=== PATIENT | male | born 1985 | race American Indian/Alaskan Native ===

== ENCOUNTER 2021-07-10 22:49 | Emergency (ER) | payer SELFPAY ==
--- NOTE | 2021-07-11 01:05 | Emergency Department Report ---
ED Upper Extremity Inj HPI - General Chief Complaint: Wound/Laceration Stated Complaint: RT HAND INJURY Source: patient Mode of arrival: Ambulatory Limitations: No Limitations - History of Present Illness Initial Comments: Patient is a 35-year-old -Martiniquais male with no past medical history presents to the ED with complaint of acute onset persistent painful distal right thumb laceration on the palmar side after a metallic can that he was opening cut his right arm accidentally 2 hours ago. Patient states that the bleeding is not well controlled at this time. Patient states that he is up-to-date with all his vaccinations including tetanus. Patient denies numbness and tingling or weakness of right hand, nausea and vomiting, dizziness, syncope, fall, shortness of breath or lightheadedness. MD Complaint: Injury to:: right, finger (Right thumb laceration) -: Sudden, hour(s) (2) Other Extremity Injury: Fingers: Right (Right thumb laceration on the palmar side) Other Injuries: none Handedness: right Place: home Severity scale (0 -10): 7 Improves With: none Worsens With: movement of extremity Context: laceration (Right thumb laceration), injury (Right thumb laceration) Associated Symptoms: denies other symptoms. denies: weakness, numbness, suspects foreign body, nausea/vomiting, heard/felt popping sensat - Related Data Previous Rx's Medication Instructions Recorded Last Taken Type Ibuprofen [Motrin] 800 mg PO Q8HR PRN #30 tablet 07/11/21 Unknown Rx cephALEXin [Keflex] 500 mg PO Q8HR #30 cap 07/11/21 Unknown Rx Allergies Allergy/AdvReac Type Severity Reaction Status Date / Time No Known Allergies Allergy Unverified 07/11/21 00:38 ED Review of Systems ROS: Stated complaint: RT HAND INJURY Other details as noted in HPI Constitutional: denies: chills, fever Eyes: denies: eye pain, eye discharge, vision change ENT: denies: ear pain, throat pain Respiratory: denies: cough, shortness of breath, wheezing Cardiovascular: denies: chest pain, palpitations Endocrine: no symptoms reported Gastrointestinal: denies: abdominal pain, nausea, vomiting, diarrhea Genitourinary: denies: urgency, dysuria Musculoskeletal: arthralgia (Right thumb pain with bleeding laceration). denies: back pain, joint swelling Skin: other (Bleeding distal right thumb laceration with pain). denies: rash, lesions Neurological: denies: headache, weakness, paresthesias Psychiatric: denies: anxiety, depression Hematological/Lymphatic: denies: easy bleeding, easy bruising ED Past Medical Hx - Medications Home Medications: Home Medications Medication Instructions Recorded Confirmed Last Taken Type Ibuprofen [Motrin] 800 mg PO Q8HR PRN #30 tablet 07/11/21 Unknown Rx cephALEXin [Keflex] 500 mg PO Q8HR #30 cap 07/11/21 Unknown Rx ED Physical Exam - General Limitations: No Limitations General appearance: alert, in no apparent distress - Head Head exam: Present: atraumatic, normocephalic, normal inspection - Eye Eye exam: Present: normal appearance, PERRL, EOMI Pupils: Present: normal accommodation - ENT ENT exam: Present: normal exam, normal orophraynx, mucous membranes moist, TM's normal bilaterally, normal external ear exam - Neck Neck exam: Present: normal inspection, full ROM. Absent: tenderness - Respiratory Respiratory exam: Present: normal lung sounds bilaterally. Absent: respiratory distress, wheezes, rales, rhonchi, chest wall tenderness, accessory muscle use, decreased breath sounds, prolonged expiratory - Cardiovascular Cardiovascular Exam: Present: regular rate, normal rhythm, normal heart sounds. Absent: systolic murmur, diastolic murmur, rubs, gallop - GI/Abdominal GI/Abdominal exam: Present: soft, normal bowel sounds. Absent: distended, tenderness, guarding, rigid, hyperactive bowel sounds, hypoactive bowel sounds, organomegaly - Extremities Exam Extremities exam: Present: normal inspection, full ROM, tenderness (Bleeding tender distal right thumb 5 cm laceration on palmar side), normal capillary refill. Absent: calf tenderness - Back Exam Back exam: Present: normal inspection, full ROM. Absent: tenderness, CVA tenderness (R), CVA tenderness (L), muscle spasm, paraspinal tenderness, vertebral tenderness - Neurological Exam Neurological exam: Present: alert, oriented X3, CN II-XII intact, normal gait, reflexes normal - Psychiatric Psychiatric exam: Present: normal affect, normal mood - Skin Skin exam: Present: warm, dry, intact, normal color, other (Bleeding 5 cm laceration on distal right thumb on palmar side with localized tenderness). Absent: rash ED Course Vital Signs 07/10/21 22:59 Temperature 98.3 F Pulse Rate 75 Respiratory 18 Rate Blood Pressure 153/108 O2 Sat by Pulse 97 Oximetry - Laceration /Wound Repair Right Distal Plantar Finger Wound Location: upper extremity (Distal right thumb laceration on palmar side) Wound Length (cm): 5 Wound's Depth, Shape: superficial, irregular Wound Explored: contaminated Irrigated w/ Saline (ccs): 300 Betadine Prep?: Yes Anesthesia: 1% Lidocaine Volume Anesthetic (ccs): 7 Wound Debrided: extensive Wound Repaired With: sutures Suture Size/Type: 4:0, proline Number of Sutures: 15 Layer Closure?: No Sterile Dressing Applied?: Yes Progress: The bleeding distal right thumb laceration was cleaned extensively normal saline and Betadine solutions. Lidocaine 1% solution was used as a local anesthetic. When anesthesia was fully achieved, the wound was sutured per protocol using Prolene 4-0 sutures for a total of 15 sutures. The wound was then dressed appropriately after cleaning with normal saline, the bleeding well controlled. The wound was then dressed appropriately with 4 x 4 gauze and Kerlix. Patient tolerated the procedure well. Patient was therefore discharged home on pain medications and antibiotics and advised to follow-up with his primary care physician in 7 to 10 days for reevaluation or return to the ED immediately if symptoms get worse. Patient was also advised return to the ED or to his primary care physician in 12 to 14 days for suture removal. ED Medical Decision Making - Medical Decision Making This is a 35-year-old -Martiniquais male with no past medical history presents to the ED with complaint of acute onset persistent painful distal right thumb laceration on the palmar side after a metallic can that he was opening cut his right arm accidentally 2 hours ago. Patient states that the bleeding is not well controlled at this time. Patient states that he is up-to-date with all his vaccinations including tetanus. In the ED, patient is alert and oriented x3 and is not in any distress. Patient however appears to be in pain. Patient was treated for pain in the ED and the bleeding distal right thumb laceration was cleaned extensively normal saline and Betadine solutions. Lidocaine 1% solution was used as a local anesthetic. When anesthesia was fully achieved, the wound was sutured per protocol using Prolene 4-0 sutures for a total of 15 sutures. The wound was then dressed appropriately after cleaning with normal saline, the bleeding well controlled. The wound was then dressed appropriately with 4 x 4 gauze and Kerlix. Patient tolerated the procedure well. Patient was therefore discharged home on pain medications and antibiotics and advised to follow-up with his primary care physician in 7 to 10 days for reevaluation or return to the ED immediately if symptoms get worse. Patient was also advised return to the ED or to his primary care physician in 12 to 14 days for suture removal. - Differential Diagnosis Finger laceration; finger abrasion; finger puncture wound Critical care attestation.: If time is entered above; I have spent that time in minutes in the direct care of this critically ill patient, excluding procedure time. ED Disposition Clinical Impression: Laceration of right thumb without foreign body without damage to nail Qualifiers: Encounter type: initial encounter Qualified Code(s): S61.011A - Laceration without foreign body of right thumb without damage to nail, initial encounter Disposition: HOME / SELF CARE / HOMELESS Is pt being admited?: No Does the pt Need Aspirin: No Condition: Stable Instructions: Sutured Wound Care, [id number], Sutures, [place], or Adhesive Wound Closure, [id number], Laceration Care, Adult, [id number] Additional Instructions: Take medication with food, drink plenty of fluids and follow-up with your [facility] care physician in 7 to 10 days for reevaluation. Return to the ED immediately if symptoms get worse. Otherwise return to the ED or to your primary care physician in 12 to 14 days for suture removal. Prescriptions: cephALEXin [Keflex] 500 mg PO Q8HR #30 cap Ibuprofen [Motrin] 800 mg PO Q8HR PRN #30 tablet PRN Reason: Pain , Severe (7-10) Referrals: [facility] [Provider Group] - 7-10 days Time of Disposition: 01:09 Print Language: ETHIOPIAN
[2021-07-11] MEDS ORDERED: IBUPROFEN 800 MG TAB PO ONE (01:52)
[2021-07-11] MEDS ORDERED: LIDOCAINE (1%) 10 MG/1 ML VIAL 20 ML MDV INFILTRATI ONE (01:52)
[2021-07-11 02:41] VITALS: BP 147/100
== END 2021-07-11 02:41 | disposition home or self-care (01) ==
LOC: ED 22:49
DX: S61.011A Laceration without foreign body of right thumb without damage to nail, initial encounter (principal); W26.8XXA Contact with other sharp object(s), not elsewhere classified, initial encounter; Y93.89 Activity, other specified; Y92.89 Other specified places as the place of occurrence of the external cause; Y99.8 Other external cause status
CPT/HCPCS: 99282